=== PATIENT | female | born 1970 | race Caucasian/White ===

== ENCOUNTER 2016-07-11 06:25 | Emergency (ER) | payer BC ==
[~2016-07-11] VITALS: Ht 162.6 cm; Wt 101.6 kg
--- NOTE | 2016-07-11 06:25 | NUR ---
[facility] TO ER BED 1
[2016-07-11 06:30] VITALS: BP 157/97
--- NOTE | 2016-07-11 06:38 | NUR ---
46Y F BIBA C/O LOW BLOOD SUGAR. PARAMEDICS STATES WOKE AND NOTICED PT WAS AWAKE AND ATTEMPTED TO COMMUNICATE WITH PT WHEN HE NOTICED SHE COULD NOT RESPOND APPRORIATELY TO HIM. PT STATES SHE HAS AN INSULIN PUMP, BUT IT IS NOT CURRENTLY ATTACHED TO PT AT THE MOMENT, AND [facility] DENIES HAVING POSSESSION OF IT. PT DENIES N/V/D; SKIN IS PINK/WARM/DRY; AAOX4 WITH EVEN AND STEADY GAIT; LUNGS CLEAR BL; HR EVEN AND REGULAR; PT DENIES ANY FEVER, CP, SOB, OR COUGH AT THIS TIME; PATIENT STATES PAIN OF 0/10 AT THIS TIME; VSS; PATIENT POSITIONED FOR COMFORT; HOB ELEVATED; BEDRAILS UP X2; BED DOWN. ER MD MADE AWARE OF PT STATUS. HX: DM, HTN, ASTHMA NKA PT
--- NOTE | 2016-07-11 06:38 | NUR ---
[facility] WAS AT SEEN AND STATES PT HAD A 38 BLOOD SUGAR. PT ARRIVED AAOx4, LAKISHA BS 132 AT THIS TIME.
--- NOTE | 2016-07-11 06:38 | NUR ---
IV ESTABLISHED ON THE FIELD RIGHT 20G IN AC
[2016-07-11] MEDS ORDERED: NACL 0.9% 1,000 ML IV ONE (06:45)
--- NOTE | 2016-07-11 06:46 | NUR ---
Patient being evaluated by physician DR LEE at bedside.
[2016-07-11] MEDS ORDERED: SYNTHROID0.15 MG PO (06:50)
[2016-07-11] MEDS ORDERED: LIPITOR20 MG PO (06:51)
[2016-07-11] MEDS ORDERED: ZESTRIL20 MG PO (06:53)
[2016-07-11] MEDS ORDERED: SYNTHROID PO (06:53)
[2016-07-11] MEDS ORDERED: SYNTHROID 25 MCG PO (06:55)
[2016-07-11] MEDS ORDERED: JARDIANCE25 MG PO (06:55)
--- NOTE | 2016-07-11 06:58 | NUR ---
BOB DHALIWAL APPLIED TO PATIENT
--- NOTE | 2016-07-11 07:06 | NUR ---
Pt report given to IGNACIO RUTHERFORD . Transfer of care at this time.
--- NOTE | 2016-07-11 07:13 | NUR ---
Report revieved from Paola Hernández.Pt lying on bed comfortably;alert and awake;no acute distress noted at this time.Will continue to monitor pt.
--- NOTE | 2016-07-11 07:15 | NUR ---
XRAY AT BEDSIDE.
--- NOTE | 2016-07-11 07:26 | NUR ---
Dr. Mckeon evaluating patient at bedside.
--- NOTE | 2016-07-11 07:27 | NUR ---
DR GARCIA AT BEDSIDE
--- NOTE | 2016-07-11 07:55 | NUR ---
PT REFUSED WARMING BLANKET TO BE REMOVE.PT STATES"I LIKE THIS BETTER"I'M FEELING COLD". NO ACUTE DISTRESS NOTED AT THIS TIME.WILL CONTINUE TO MONITOR PT.
--- NOTE | 2016-07-11 08:15 | NUR ---
PT IS SLEEPING; AT BEDSIDE NO ACUTE DISTRES NOTED AT THIS TIME;WILL CONTINUE TO MONITOR PT.
--- NOTE | 2016-07-11 09:07 | NUR ---
Patient discharged with v/s stable. Written and verbal after care instructions given and explained. Patient alert, oriented and verbalized understanding of instructions. Ambulatory with steady gait. All questions addressed prior to discharge. ID band removed. Patient advised to follow up with PMD.Opportunity to ask questions provided and answered.ADVISED PT TO MONITOR BS,EAT NUTRICIOUS FOOD AND EXECISE.
[2016-07-11 09:11] VITALS: BP 124/69
== END 2016-07-11 09:07 | disposition home or self-care (01) ==
LOC: MED 06:25
DX: E11.65 Type 2 diabetes mellitus with hyperglycemia (principal); I10 Essential (primary) hypertension
CPT/HCPCS: 36415; 71010; 80053; 82948; 84484; 85025; 85610; 85730; 93005; 96360; 96361; 99285; J7030; Q0092